=== PATIENT | male | born 1990 | race Caucasian/White ===

== ENCOUNTER → 2017-08-04 | Outpatient (CLI) | payer OTHER ==
[2015-04-09 19:20] VITALS: BP 138/93
[~2017-08-04] MED LIST: HYDR-971 PO
--- NOTE | 2017-08-04 15:44 | RAD ---
5 views of lumbar spine 08/04/2017 Indication: Low back pain x5 days Comparison study: Lumbar spine radiographs January 27, 2012 Discussion: No evidence of acute fracture or alignment abnormality of the lumbar spine is identified. There is possible spondylolysis on the right at L5. No significant anterolisthesis is identified however. Vertebral body heights are preserved. Disc spaces are relatively preserved. Mild facet arthrosis may be present in the inferior lumbar spine. Impression: 1. Possible spondylolysis on the right at L5 uncertain clinical significance. Findings could be further evaluated with CT if clinically indicated. 2. Otherwise unremarkable appearance of the lumbar spine.
== END | disposition home or self-care (01) ==
LOC: DXRADRC 15:12
PROVIDERS: ATTEND Physician Assistant
DX: M54.5 Low back pain (principal)
CPT/HCPCS: 72110

== ENCOUNTER → 2018-12-25 | Outpatient (CLI) | payer OTHER ==
[2015-04-09 19:20] VITALS: BP 138/93
[~2018-12-25] MED LIST changes: +HYDR-3165 PO; -HYDR-971 PO
--- NOTE | 2018-12-25 15:23 | RAD ---
EXAM: Left hand, 3 views. HISTORY: Blunt trauma. COMPARISON: None. FINDINGS: 3 views of the left hand are obtained. There is no fracture, dislocation or subluxation. IMPRESSION: No acute osseous finding. Electronically signed by: Supriya Paul MD (12/25/2018 3:20 PM) [id number]
== END | disposition home or self-care (01) ==
LOC: PMG 15:00
PROVIDERS: ATTEND Physician Assistant
DX: M79.642 Pain in left hand (principal)
CPT/HCPCS: 73130